=== PATIENT | female | born 1940 | race Two or more races ===

== ENCOUNTER 2019-10-24 11:00 | Outpatient (CLI) | payer MEDICARE | END 2019-10-24 23:59 | LOC: WOU 11:00 | PROVIDERS: ATTEND Surgery | DX: Z48.89 Encounter for other specified surgical aftercare (principal); C50.511 Malignant neoplasm of lower-outer quadrant of right female breast; E11.9 Type 2 diabetes mellitus without complications; Z79.4 Long term (current) use of insulin | CPT/HCPCS: G0463 ==

== ENCOUNTER 2020-01-27 13:00 | Outpatient (CLI) | payer MEDICARE | END 2020-01-27 23:59 | disposition home or self-care (01) | LOC: LAB 13:00 | PROVIDERS: ATTEND Surgery | DX: Z01.812 Encounter for preprocedural laboratory examination (principal); Z20.828 Contact with and (suspected) exposure to other viral communicable diseases | CPT/HCPCS: 87426; C9803 ×2; U0003 ==

== ENCOUNTER 2020-01-30 07:23 | Day surgery (SDC) | payer MEDICARE ==
[2020-01-30] MEDS ORDERED: HEPARIN SODIUM, PORCINE 1,000 UNIT/ML VIAL ONE (09:10)
[2020-01-30] MEDS ORDERED: LIDOCAINE HCL/MPF 1% 30 ML VIAL IJ ONE (09:10)
[2020-01-30] MEDS ORDERED: ANESTHESIA TRAY IN PYXIS 1 EA TRAY MC ONE (09:12)
[2020-01-30] MEDS ORDERED: FENTANYL PF 100MCG/2ML AMPUL ONE (09:19)
[2020-01-30] MEDS ORDERED: SEVOFLURANE 250 ML BOTTLE IH ONE (14:24)
[2020-01-30] MEDS ORDERED: DESFLURANE 240 ML BOTTLE IH ONE (14:24)
== END 2020-01-30 12:35 | disposition home or self-care (01) ==
LOC: DS 07:23
PROVIDERS: ATTEND Surgery
DX: C50.911 Malignant neoplasm of unspecified site of right female breast (principal); I10 Essential (primary) hypertension; E11.9 Type 2 diabetes mellitus without complications; Z79.899 Other long term (current) drug therapy
CPT/HCPCS: 36561; 71045 ×2; 76937; 77001; 82962 ×4; C1788; J1644; J3010; J3490; J0690; J2704

== ENCOUNTER 2020-02-13 11:30 | Outpatient (CLI) | payer MEDICARE | END 2020-02-13 23:59 | disposition home or self-care (01) | LOC: WOU 11:30 | PROVIDERS: ATTEND Surgery | DX: Z48.89 Encounter for other specified surgical aftercare (principal); C50.511 Malignant neoplasm of lower-outer quadrant of right female breast; Z95.828 Presence of other vascular implants and grafts; E11.9 Type 2 diabetes mellitus without complications; Z79.4 Long term (current) use of insulin; I10 Essential (primary) hypertension | CPT/HCPCS: G0463 ==